=== PATIENT | female | born 1940 | race Caucasian/White ===

== ENCOUNTER 2021-12-18 06:06 | Emergency (ER) | payer MEDICARE ==
[2021-12-18] MEDS ORDERED: Diclofenac Sodium 1% Gel 100 GM Tube TOP PRN (06:58)
== END 2021-12-18 07:45 | disposition home or self-care (01) ==
LOC: LL.ED 06:06
DX: S80.01XA Contusion of right knee, initial encounter (principal); S09.90XA Unspecified injury of head, initial encounter; F17.210 Nicotine dependence, cigarettes, uncomplicated; Z88.0 Allergy status to penicillin; W18.40XA Slipping, tripping and stumbling without falling, unspecified, initial encounter
CPT/HCPCS: 70450; 73562-RT; 99284; 99284-25